=== PATIENT | male | born 1975 | race American Indian/Alaskan Native ===

== ENCOUNTER 2020-05-12 12:15 | Emergency (ER) | payer MEDICAID ==
[2020-05-12] MEDS ORDERED: methylPREDNISolone Sod Succinate 125 MG/2 ML INJ IV ONE (12:30)
--- NOTE | 2020-05-12 12:33 | Emergency Department Report ---
HPI - General Time Seen by Provider: 05/12/20 12:29 - HPI HPI: This is a 44-year-old -[place] male presents to the emergency department via EMS from home with complaint of some shortness of breath, dry cough, and some chest discomfort while breathing, that started early this morning. Patient tried his albuterol inhaler without any relief. He has a history of epilepsy and asthma. He is a tobacco smoker but denies any illicit drug use. He denies any fever, nausea, vomiting, back pain, diaphoresis, lower extremity swelling. No recent travel or sick contacts at home. No known exposure to anyone with Covid 19. He does not have a primary care physician. ED Past Medical Hx - Medications Home Medications: Home Medications Medication Instructions Recorded Confirmed Last Taken Type ALBUTEROL NEB's 5 mg PRN PRN 05/12/20 05/12/20 Unknown History Albuterol Mdi (or & Nicu Only) 2 puff IH QID PRN #8.5 gram 05/12/20 Unknown Rx [ProAir HFA Inhaler] metFORMIN [Glucophage] 500 mg PO BID #60 tablet 05/12/20 Unknown Rx ED Review of Systems ROS: Stated complaint: TOYA Other details as noted in HPI Comment: All other systems reviewed and negative Constitutional: denies: chills, fever Eyes: denies: eye pain, vision change ENT: denies: ear pain, throat pain Respiratory: cough, shortness of breath Cardiovascular: chest pain. denies: edema Gastrointestinal: denies: abdominal pain, vomiting Genitourinary: denies: dysuria, discharge Musculoskeletal: denies: back pain, arthralgia Skin: denies: rash, lesions Neurological: denies: headache, weakness Physical Exam - Physical Exam Physical Exam: GENERAL: The patient is well-developed well-nourished. HENT: Normocephalic. Atraumatic. Patient has moist mucous membranes. EYES: Extraocular motions are intact. NECK: Supple. Trachea is midline. CHEST/LUNGS: Mild to moderate wheezing throughout the chest. There is tachypnea but no accessory muscle use. There is no respiratory distress noted. HEART/CARDIOVASCULAR: Regular. There is mild tachycardia. There is no murmur. ABDOMEN: Abdomen is soft, nontender. Patient has normal bowel sounds. There is no abdominal distention. SKIN: Skin is warm and dry. NEURO: The patient is awake, alert, and oriented. The patient is cooperative. The patient has no focal neurologic deficits. Normal speech. MUSCULOSKELETAL: There is no tenderness or deformity. There is no evidence of acute injury. ED Medical Decision Making - Lab Data Result diagrams: 05/12/20 12:49 05/12/20 12:49 - EKG Data -: EKG Interpreted by Me EKG shows normal: sinus rhythm, axis, intervals, QRS complexes, ST-T waves Rate: normal - EKG Data When compared to previous EKG there are: previous EKG unavailable Interpretation: normal EKG - Radiology Data Radiology results: image reviewed interpreted by me: Chest x-ray does not show any acute process. There are no pleural effusions, obvious pneumonia and there is no pneumothorax. - Medical Decision Making This patient presented with complaint of some shortness of breath and some chest tightness. He has mild to moderate bronchospasm but does not appear in any acute or respiratory distress. EKG did not show any signs of ST elevation PA or dysrhythmia. Chest x-ray does not show any pneumonia, pleural effusions, pneumothorax, or any acute process. The patient's labs were mostly unremarkable including a negative troponin, negative d-dimer, but the patient did have elevated blood sugar of almost 400. I later spoke with the patient again and he admits to recent polyuria, polydipsia. Patient was given some IV fluid resuscitation and a dose of IV insulin and his blood sugar went down to about 350. The patient was not willing to stay for any further insulin or IV fluid. He did not have any significant elevation in his anion gap and does not appear diabetic ketoacidosis. The patient received a dose of Solu-Medrol early in his ED course, followed by a breathing treatment with both albuterol and ipratropium. The bronchospasm has greatly improved if not resolved. His vital signs been reassuring throughout his ED course including being afebrile and no hypoxia. The patient has been given outpatient referrals for primary care. He will be started on metformin. We discussed dietary and lifestyle modifications for this new onset type 2 diabetes. He will return to the ER with any worsening of his symptoms or with any acute distress. Critical Care Time: No Critical care attestation.: If time is entered above; I have spent that time in minutes in the direct care of this critically ill patient, excluding procedure time. ED Disposition Clinical Impression: Diabetes mellitus, new onset, Bronchospasm, Tobacco use Asthma exacerbation Qualifiers: Asthma severity: unspecified severity Asthma persistence: unspecified Qualified Code(s): J45.901 - Unspecified asthma with (acute) exacerbation Disposition: DC- TO HOME OR SELFCARE Is pt being admited?: No Condition: Stable Instructions: Metformin (By mouth), Asthma (ED), How to Check Your Blood Sugar (ED), Diabetes Mellitus Type 2 in Adults (ED), Bronchospasm (ED) Additional Instructions: Please follow-up with a primary care physician in the next few days. Please try and quit smoking. Return to the emergency department with any worsening of your symptoms or with any acute distress. I am starting you on metformin 500 mg twice daily. Try to stay away from foods that are high in sugar, carbohydrates and starches. Keep a blood sugar log. Prescriptions: metFORMIN [Glucophage] 500 mg PO BID #60 tablet Albuterol Mdi (or & Nicu Only) [ProAir HFA Inhaler] 2 puff IH QID PRN #8.5 gram PRN Reason: Shortness Of Breath Referrals: PRIMARY CAREMD [Primary Care Provider] - 3-5 Days STEFAN ESPOSITO MD [Staff Physician] - 3-5 Days [facility] [Provider Group] - 3-5 Days CRESENCIO MORIN DO [Staff Physician] - 3-5 Days Time of Disposition: 17:09
[2020-05-12] MEDS ORDERED: ALBUTEROL 2.5 MG/3 ML NEBU IH ONE (12:58)
[2020-05-12] MEDS ORDERED: IPRATROPIUM 0.02% NEBU 2.5 ML IH ONE (12:59)
[2020-05-12 13:30] LABS: Basophils % (Auto) 0.7 % (0.0-1.8); Eosinophils % (Auto) 0.7 % (0.0-4.3); Hematocrit 46.2 % (35.5-45.6); Hemoglobin 15.5 gm/dl (11.8-15.2); Lymphocytes # (Auto) 1.2 K/mm3 (1.2-5.4); Lymphocytes % (Auto) 23.7 % (13.4-35.0); Mean Corpuscular HGB Conc 34 % (32-34); Mean Corpuscular Volume 103 fl (84-94); Monocytes # (Auto) 0.4 K/mm3 (0.0-0.8); Monocytes % (Auto) 7.6 % (0.0-7.3); Platelet Count 295 K/mm3 (140-440); Red Blood Count 4.49 M/mm3 (3.65-5.03)
[2020-05-12 13:48] LABS: BUN/Creatinine Ratio 8; Blood Urea Nitrogen 8 mg/dL (9-20); Calcium 9.1 mg/dL (8.4-10.2); Hemolysis Index 16
[2020-05-12] MEDS ORDERED: SODIUM CHLORIDE 0.9% 1000 ML 1,000 ML IV ONE ×2 (13:51→16:57)
--- NOTE | 2020-05-12 13:51 | XRay Report ---
CHEST 1 VIEW INDICATION / CLINICAL INFORMATION: SOB. FINDINGS: SUPPORT DEVICES: None. HEART / MEDIASTINUM: No significant abnormality. LUNGS / PLEURA: No significant pulmonary or pleural abnormality. No pneumothorax. ADDITIONAL FINDINGS: No significant additional findings. IMPRESSION: 1. No acute findings. Signer Name: Bradley Elder MD Signed: 05/12/2020 1:46 PM Workstation Name: [id number]
[2020-05-12] MEDS ORDERED: INSULIN REGULAR, HUMAN 100 UNIT/ML 3ML VIAL IV SCH (14:00)
[2020-05-12] MEDS ORDERED: INSULIN REGULAR, HUMAN 100 UNITS/1 ML ONE (15:00)
[2020-05-12] MEDS ORDERED: KETOROLAC 30 MG/1 ML INJ IV ONE (15:22)
[2020-05-12 19:52] VITALS: BP 136/76
== END 2020-05-12 17:30 | disposition home or self-care (01) ==
LOC: ED 12:15
DX: J45.901 Unspecified asthma with (acute) exacerbation (principal); F19.10 Other psychoactive substance abuse, uncomplicated; E11.9 Type 2 diabetes mellitus without complications; Z79.899 Other long term (current) drug therapy
CPT/HCPCS: 36415; 71045; 80048; 82962; 83880; 84484; 85025; 85379; 93005; 94640; 96361; 96374; 96375; 99285; J1885; J2930; J7030; J1815